=== PATIENT | male | born 1955 | race Caucasian/White ===

== ENCOUNTER 2017-10-24 16:28 | Inpatient (IN) | payer BC ==
[~2017-10-24] VITALS: Ht 181.6 cm; Wt 91.3 kg
--- NOTE | ~2017-10-24 | CON ---
[place], [place] REPORT OF CONSULTATION NAME: ERIBERTO BARRERA UNIT #: [id number] ROOM: 416 DOCTOR: DANIELA JIMENEZ MD BIRTHDATE: [birth year] DOS: 10/25/2017 REASON FOR CONSULTATION: Near syncope. 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 He does have a history of hypertension, but no history of diabetes, myocardial infarction or stroke. He states that for the past few weeks, he has had occasional episodes where he suddenly feels lightheaded. One occurred while he was standing at work as a dentist. He stated that he felt like he was going to pass out. He did develop diaphoresis and a little bit of nausea. He had to sit down to keep from falling down. He subsequently felt a bit better, was able to finish his day, but had to lie down shortly after that because he was so weak and lightheaded. He did not have any chest pain. He became concerned, especially considering his family history which is strongly positive for coronary artery disease. He therefore presented to the Emergency Room and was admitted. In the Emergency Room, his electrocardiogram showed no acute changes. His monitor does show frequent isolated PVCs. Troponin levels have been normal. PAST HISTORY: Includes, 1. Essential hypertension. 2. Knee surgery. 3. Umbilical hernia repair. MEDICATIONS PRIOR TO ADMISSION: Aspirin 81 mg per day and losartan 50 mg per day. REVIEW OF SYSTEMS: The patient denies diplopia or loss of vision. He denies lightheadedness or syncope except for those episodes prior to admission. He denies nausea or vomiting except for just prior to admission. He did have nausea. He denies fevers, chills, sweats or recent weight change. He denies orthopnea or PND. He denies palpitations or change in bowel or bladder habits. He denies blood in his stools or urine. He denies any peripheral edema. He denies any claudications. There are no skin rashes. Remainder of the review of systems is negative except as noted above. FAMILY HISTORY: Strongly positive. His father had a heart attack in his 40s and in his 50s. Several of his brothers also had heart disease. 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 He does not smoke or consume significant amounts of alcohol. PHYSICAL EXAMINATION: GENERAL: The patient is a well-nourished white male. He is awake, alert and oriented. VITAL SIGNS: Pulse is 60 and regular, blood pressure is 142/87. He is afebrile. He weighs 91.3 kg and has a body mass index of 27.7. HEENT: Normocephalic and atraumatic. Extraocular muscles are intact. Sclerae are clear. Pupils equal, round and react to light. The oral mucosa is moist. Tongue is midline. [place], [place] REPORT OF CONSULTATION NAME: ERIBERTO BARRERA UNIT #: [id number] ROOM: 416 DOCTOR: DANIELA JIMENEZ MD BIRTHDATE: [birth year] NECK: Supple. He has no jugular distention. Carotids are full. I heard no bruits. He had no neck or supraclavicular masses, no thyromegaly. LUNGS: Respirations are unlabored. His chest is clear to auscultation and percussion. He has no presacral edema or chest wall tenderness. CARDIOVASCULAR: His heart has a regular rhythm. He has a fourth heart sound, but no third heart sound or murmur. The PMI is not displaced. There is no precordial heave, lift or thrill. ABDOMEN: Soft and normally active without masses, organomegaly or bruits. EXTREMITIES: Showed no clubbing, cyanosis or edema. Pedal pulses are full and equal bilaterally. LABORATORY DATA: His electrocardiogram at rest shows sinus rhythm with occasional premature ventricular contractions. No acute ST or T-wave changes are seen. Hemoglobin is 16.0, hematocrit 47.8, there are 7300 white cells, and 226,000 platelets present. Sodium is 142, potassium 3.9, chloride 108, CO2 28, BUN 14, and creatinine 1.18. Troponin levels are normal. IMPRESSIONS: Near syncopal episodes. Some of these sound vasovagal; however, he has never had vasovagal syncope before. There is a slight bit of vertigo, but again, this does not seem to be a prominent part of his presentation. He does have a very strong family history of heart disease. Further evaluation with an echocardiogram and stress testing is appropriate and we will proceed. Further recommendations depend upon the results of the testing. We thank the hospitalist physicians for asking our advice regarding his care. DANIELA JIMENEZ MD CM:CONSTR:REPORT OF CONSULTATION 1115 10/25/17 2138 interface
--- NOTE | ~2017-10-24 | PR ---
[place], [place] PROGRESS NOTE NAME: ERIBERTO BARRERA UNIT #: [id number] ROOM: 416 DOCTOR: BARBARA SONG,DANIELA BIRTHDATE: [birth year] DOS: 10/25/2017 CARDIOLOGY PROGRESS NOTE I reviewed the stress test results on the patient. The exercise electrocardiogram did show nonsustained polymorphic V-tach. His perfusion images do show a small area of apical ischemia. I discussed the findings with Dr. Sellers, industrial relations specialist at [facility]. He felt that evaluation for coronary artery disease was of prime importance. I therefore did discuss his case with Dr. Goyo Hyman at [place]. We will plan on doing a cardiac catheterization on him this afternoon with electrophysiologic evaluation to follow, if the catheterization does not show significant disease. DANIELA JIMENEZ MD CM:PNTRANS [id number] DANIELA JIMENEZ MD 10/25/17 1340 interface
[2017-10-24 16:32] VITALS: BP 122/80
[2017-10-24 17:20] LABS: BASO # 0.1 10*3/uL (0.0-0.1); BASO % 1.4 % (0.0-1.0); EOS # 0.2 10*3/uL (0.0-0.4); EOS % 2.9 % (1.0-4.0); HEMATOCRIT 46.3 % (42.0-52.0); HEMOGLOBIN 15.4 g/dl (14.0-18.0); LYMPH # 2.1 10*3/uL (1.3-4.4); LYMPH % 29.5 % (27.0-41.0); MEAN CELL VOLUME 95.1 fl (80.0-94.0); MEAN CORPUSCULAR HGB 31.6 pg (27.0-31.0); MEAN CORPUSCULAR HGB CONC 33.3 g/dl (33.0-37.0); MEAN PLATELET VOLUME 10.2 fl (9.6-12.3); MONO # 0.8 10*3/uL (0.1-1.0); MONO % 10.9 % (3.0-9.0); NEUT % 55.2 % (47.0-73.0); PLATELET COUNT AUTOMATED 224 10*3/uL (130-400); RED BLOOD COUNT 4.87 10*6/uL (4.50-5.90); RED CELL DISTRI WIDTH 12.7 % (0-14.5); WHITE BLOOD COUNT 7.3 10*3/uL (4.8-10.8)
[2017-10-24 17:38] LABS: ALBUMIN 3.6 gm/dl (3.1-4.5); ALKALINE PHOSPHATASE 71 U/L (45-117); BUN 17 mg/dl (7-24); CHLORIDE 105 mmol/L (98-107); CREATININE 1.31 mg/dL (0.70-1.30); LIPASE 162 U/L (73-393); POTASSIUM 4.2 mmol/L (3.5-5.1); SGOT/AST 14 IU/L (3-35); SGPT/ALT 32 U/L (12-78); SODIUM 139 mmol/L (136-145); TOTAL PROTEIN 7.4 gm/dL (6.4-8.2)
[2017-10-24 17:39] LABS: TROPONIN I < 0.015 ng/ml (<0.045)
[2017-10-24 17:41] LABS: ACT PARTIAL THROMBO TIME 23.2 SECONDS (20.8-31.5)
[2017-10-24] MEDS ORDERED: COZAAR50 M1 PO (18:31)
[2017-10-24] MEDS ORDERED: ASPIRIN81 M1 PO (18:31)
[2017-10-24 20:00] VITALS: BP 140/84
[2017-10-25] VITALS: BP 117/72
[2017-10-25 07:33] LABS: BASO # 0.1 10*3/uL (0.0-0.1); BASO % 1.1 % (0.0-1.0); EOS # 0.3 10*3/uL (0.0-0.4); EOS % 4.4 % (1.0-4.0); HEMATOCRIT 47.8 % (42.0-52.0); LYMPH # 2.6 10*3/uL (1.3-4.4); LYMPH % 34.8 % (27.0-41.0); MEAN CELL VOLUME 94.7 fl (80.0-94.0); MEAN CORPUSCULAR HGB 31.7 pg (27.0-31.0); MEAN CORPUSCULAR HGB CONC 33.5 g/dl (33.0-37.0); MEAN PLATELET VOLUME 10.4 fl (9.6-12.3); MONO # 0.7 10*3/uL (0.1-1.0); MONO % 10.1 % (3.0-9.0); NEUT # 3.6 10*3/uL (2.3-7.9); NEUT % 49.3 % (47.0-73.0); PLATELET COUNT AUTOMATED 226 10*3/uL (130-400); RED BLOOD COUNT 5.05 10*6/uL (4.50-5.90); RED CELL DISTRI WIDTH 12.6 % (0-14.5); WHITE BLOOD COUNT 7.3 10*3/uL (4.8-10.8)
[2017-10-25 08:00] VITALS: BP 142/87
[2017-10-25 08:00] LABS: ALBUMIN 3.3 gm/dl (3.1-4.5); BUN 14 mg/dl (7-24); CHLORIDE 108 mmol/L (98-107); CREATININE 1.18 mg/dL (0.70-1.30); POTASSIUM 3.9 mmol/L (3.5-5.1); SGOT/AST 15 IU/L (3-35); SODIUM 142 mmol/L (136-145)
[2017-10-25 08:07] LABS: ACT PARTIAL THROMBO TIME 24.1 SECONDS (20.8-31.5)
[2017-10-25 08:11] LABS: ALKALINE PHOSPHATASE 66 U/L (45-117); CHOLESTEROL 137 mg/dL (<200); HDL CHOLESTEROL 40 mg/dl (40-60); LDL CHOLESTEROL 66 mg/dL (9-159); PHOSPHOROUS 3.3 mg/dL (2.5-4.9); SGPT/ALT 29 U/L (12-78); TRIGLYCERIDES 153 mg/dl (<150); VLDL CHOLESTEROL 31 mg/dL (6-40)
[2017-10-25 12:00] VITALS: BP 137/87
== END 2017-10-25 14:15 | disposition other institution (70) | DRG 312 ==
LOC: ED 16:28 → EDHOLD 17:52 → 4E 17:52
PROVIDERS: Emergency Medicine; Internal Medicine
DX: R55 Syncope and collapse (principal); N17.0 Acute kidney failure with tubular necrosis; R07.9 Chest pain, unspecified; I10 Essential (primary) hypertension; R73.9 Hyperglycemia, unspecified; E83.41 Hypermagnesemia; E80.6 Other disorders of bilirubin metabolism; E87.8 Other disorders of electrolyte and fluid balance, not elsewhere classified; R00.1 Bradycardia, unspecified; Z79.899 Other long term (current) drug therapy; Z79.82 Long term (current) use of aspirin; Z82.49 Family history of ischemic heart disease and other diseases of the circulatory system; Z83.3 Family history of diabetes mellitus

== ENCOUNTER → 2020-04-28 | Outpatient (CLI) | payer BC ==
[~2020-04-28] MED LIST: ASPIRIN81 M1 PO; ATORVASTATIN CA80 M1 PO; CLOPIDOGREL75 MG PO; COZAAR50 M1 PO; METOPROLOL SUCC25 M2 PO
== END | disposition home or self-care (01) ==
LOC: CT 12:15
PROVIDERS: ATTEND Internal Medicine Gastroenterology
DX: K50.10 Crohn's disease of large intestine without complications (principal)

== ENCOUNTER → 2020-06-24 | Outpatient (CLI) | payer BC ==
[~2020-06-24] MED LIST changes: +HUMIRA(CF)80 MG/0.8 SQ; +TOPICORT T
== END | disposition home or self-care (01) ==
LOC: CARD 00:28
PROVIDERS: ATTEND Internal Medicine Cardiovascular Disease
DX: R94.39 Abnormal result of other cardiovascular function study (principal); I25.10 Atherosclerotic heart disease of native coronary artery without angina pectoris; R07.2 Precordial pain

== ENCOUNTER → 2021-06-30 | Outpatient (CLI) | payer MEDICARE ==
[2021-07-01 12:07] LABS: t-TRANSGLUTAMINASE (tTG) IGA <2 U/mL (0-3)
[2021-07-03 17:06] LABS: IGG SUBCLASS 1 675 mg/dL (248-810); IGG SUBCLASS 2 347 mg/dL (130-555); IGG SUBCLASS 3 55 mg/dL (15-102); IGG SUBCLASS 4 163 mg/dL (2-96); IMMUNOGLOBULIN G, QNT 1310 mg/dL (603-1613)
== END | disposition home or self-care (01) ==
LOC: LAB 13:18
PROVIDERS: ATTEND Internal Medicine Gastroenterology
DX: Z11.4 Encounter for screening for human immunodeficiency virus [HIV] (principal); K50.10 Crohn's disease of large intestine without complications

== ENCOUNTER → 2021-08-02 | Outpatient (CLI) | payer MEDICARE ==
[2021-08-02 16:55] LABS: BASO # 0.1 10*3/uL (0.0-0.1); BASO % 1.2 % (0.0-1.0); EOS # 0.3 10*3/uL (0.0-0.4); EOS % 4.1 % (1.0-4.0); LYMPH # 1.7 10*3/uL (1.3-4.4); LYMPH % 25.8 % (27.0-41.0); MEAN CELL VOLUME 94.1 fl (80.0-94.0); MEAN PLATELET VOLUME 10.3 fl (9.6-12.3); MONO # 0.6 10*3/uL (0.1-1.0); MONO % 8.7 % (3.0-9.0); NEUT % 59.9 % (47.0-73.0); PLATELET COUNT AUTOMATED 209 10*3/uL (130-400); RED BLOOD COUNT 4.78 10*6/uL (4.50-5.90); RED CELL DISTRI WIDTH 13.2 % (0-14.5); WHITE BLOOD COUNT 6.6 10*3/uL (4.8-10.8)
[2021-08-02 17:10] LABS: BUN 15 mg/dl (7-24); CHLORIDE 109 mmol/L (98-107); CREATININE 1.08 mg/dL (0.70-1.30); POTASSIUM 3.8 mmol/L (3.5-5.1); SGOT/AST 20 IU/L (3-35); SGPT/ALT 41 U/L (12-78); SODIUM 141 mmol/L (136-145); URIC ACID 5.3 mg/dL (3.5-7.2)
[2021-08-02 17:12] LABS: ALKALINE PHOSPHATASE 96 U/L (45-117); TOTAL PROTEIN 7.3 gm/dL (6.4-8.2)
== END | disposition home or self-care (01) ==
LOC: LAB 16:27
PROVIDERS: ATTEND Internal Medicine
DX: M25.774 Osteophyte, right foot (principal); M19.071 Primary osteoarthritis, right ankle and foot; E78.00 Pure hypercholesterolemia, unspecified; M79.89 Other specified soft tissue disorders

== ENCOUNTER → 2021-08-18 | Outpatient (CLI) | payer MEDICARE | END | disposition home or self-care (01) | LOC: US 13:00 | PROVIDERS: ATTEND Internal Medicine | DX: B35.1 Tinea unguium (principal); I73.9 Peripheral vascular disease, unspecified ==

== ENCOUNTER → 2022-03-05 | Outpatient (CLI) | payer MEDICARE ==
[2022-03-05 12:18] LABS: BUN 15 mg/dl (7-24); CHLORIDE 103 mmol/L (98-107); POTASSIUM 4.2 mmol/L (3.5-5.1); SODIUM 138 mmol/L (136-145)
== END | disposition home or self-care (01) ==
LOC: LAB 11:45
PROVIDERS: ATTEND Internal Medicine
DX: U07.1 COVID-19 (principal)